=== PATIENT | female | born 1985 | race Caucasian/White ===

== ENCOUNTER → 2023-09-11 12:00 | Outpatient (CLI) | payer OTHER, SELFPAY ==
--- NOTE | ~2023-09-11 | MM_ITS ---
EXAMINATION: MM screening chrsitie BI w mary HISTORY: Screening TECHNIQUE: Craniocaudal and mediolateral oblique 3-D tomosynthesis images were obtained and synthetic 2-D images were generated. CAD analysis was submitted and interpreted. COMPARISON: No prior mammogram is available for comparison at this institution. BREAST PARENCHYMAL COMPOSITION: The breasts are heterogeneously dense, which may obscure small masses . FINDINGS: There is a focal mass in nearby asymmetries in the lower outer quadrant of the right breast . No mammographic evidence for malignancy in the left breast. IMPRESSION: 1. Right breast mass with adjacent asymmetries. 2. Additional mammographic views and possible breast ultrasound are recommended. BI-RADS Category 0: Incomplete: Needs additional imaging evaluation. Reviewed, dictated and finalized at location A. NING STILL OPERATOR IMPRESSION: 1. Right breast mass with adjacent asymmetries. 2. Additional mammographic views and possible breast ultrasound are recommended . BI-RADS Category 0: Incomplete: Needs additional imaging evaluation.
== END ==
PROVIDERS: PCP Obstetrics & Gynecology Gynecology; Visit Provider Obstetrics & Gynecology Gynecology
DX: Z12.31 Encounter for screening mammogram for malignant neoplasm of breast (principal); N63.13 Unspecified lump in the right breast, lower outer quadrant
CPT/HCPCS: 77063; 77067

== ENCOUNTER → 2023-10-09 08:54 | Outpatient (CLI) | payer OTHER, SELFPAY ==
--- NOTE | ~2023-10-09 | MMUS_ITS ---
EXAMINATION: MM diagnostic christie RT w mary, US breast RT limited HISTORY: Possible obscured mass in the lower outer quadrant of the right breast TECHNIQUE: Additional 3-D tomosynthesis images of the right breast were performed and synthetic 2-D i mages were generated. CAD analysis was submitted and interpreted. High resolution limited right breas t ultrasound was performed. COMPARISON: 09/11/2023 FINDINGS: MAMMOGRAPHIC FINDINGS: There is a 4 mm round, obscured, equal density mass in the middle third of the outer breast at the 9: 00 location, 4.5 cm from the nipple. No suspicious calcification or architectural distortion are iden tified. ULTRASOUND: There is a 6 mm cyst at the 10:00 location, 4 cm from the nipple likely corresponding to the mammogra phic finding in question. There is a 4 mm round, circumscribed, hypoechoic mass with no posterior fea tures or internal vascularity at the 10:00 location, 3 cm from the nipple. A 10 mm x 6 mm mass with s imilar sonographic features is present at the 10:00 location, 6 cm from the nipple. A 6 mm x 3 mm mas s with similar sonographic features is seen at the 9:00 location, 3 cm from the nipple. IMPRESSION: 1. Probably benign right breast masses. 2. Recommend 6 month follow-up right diagnostic mammogram and ultrasound. BI-RADS category 3, probably benign findings. Reviewed, dictated and finalized at location A. IST GUIDE IMPRESSION: 1. Probably benign right breast masses. 2. Recommend 6 month follow-up right diagnostic mammogram and ultrasound. BI-RADS category 3, probably benign findings.
== END ==
PROVIDERS: PCP Obstetrics & Gynecology Gynecology; Visit Provider Obstetrics & Gynecology Gynecology
DX: R92.8 Other abnormal and inconclusive findings on diagnostic imaging of breast (principal)
CPT/HCPCS: 76642; 77061; 77065; G0279

== ENCOUNTER 2024-04-29 08:21 | Outpatient (CLI) | payer OTHER, SELFPAY ==
--- NOTE | ~2024-04-29 | MMUS_ITS ---
EXAMINATION: MM diagnostic christie RT w mary, US breast RT limited HISTORY: Six-month follow-up of right breast lesions TECHNIQUE: 3-D tomosynthesis images of the right breast were performed and synthetic 2-D images were generated. CAD analysis was submitted and interpreted. High resolution Limited right breast ultrasoun d was performed. COMPARISON: 10/09/2023 and 09/11/2023 FINDINGS: MAMMOGRAPHIC FINDINGS: There are scattered fibroglandular densities. Parenchymal pattern of the right breast is essentially unchanged. No overtly suspicious mass lesion o r distortion seen. No suspicious interval change. No suspicious mesenteric or calcification. ULTRASOUND: Several 3 mm hypoechoic circumscribed round masses are again present at the right 9:00-10:00 position s, 3 cm from the nipple, with probably no significant interval change from prior exam. Additional pos sible 9 mm hypoechoic structure at the 10:00 position 6 cm from the nipple also appears unchanged, th ough in my opinion, this most likely represents an area of normal fibroglandular tissue. IMPRESSION: No mammographic or sonographic evidence of malignancy. Stable probable benign sonographic lesion see n at the 9:00-10:00 position of the right breast, as detailed above. Recommend follow-up ultrasound t o assure continued stability in 6 months, at the time of recommended bilateral mammography. BI-RADS category 3, probably benign findings. Reviewed, dictated and finalized at location . IMPRESSION: No mammographic or sonographic evidence of malignancy. Stable probable benign sonographic lesion seen at the 9:00-10:00 position of the right breast, as deta iled above. Recommend follow-up ultrasound to assure continued stability in 6 m onths, at the time of recommended bilateral mammography. BI-RADS category 3, probably benign findings.
== END 2024-04-29 08:22 ==
LOC: MICIMG 08:22
PROVIDERS: PCP Obstetrics & Gynecology Gynecology; Visit Provider Obstetrics & Gynecology Gynecology
DX: R92.8 Other abnormal and inconclusive findings on diagnostic imaging of breast (principal)
CPT/HCPCS: 76642; 77061; 77065; G0279

== ENCOUNTER 2024-11-17 08:21 | Outpatient (CLI) | payer OTHER, SELFPAY ==
--- NOTE | ~2024-11-17 | MMUS_ITS ---
EXAMINATION: MM diagnostic christie BI w mary, US breast RT limited HISTORY: Six-month follow-up exam TECHNIQUE: 3-D tomosynthesis images of the breasts were performed and synthetic 2-D images were gener ated. CAD analysis was submitted and interpreted. High resolution limited right breast ultrasound was performed. COMPARISON: 04/29/2024 BREAST PARENCHYMAL COMPOSITION:Not Dense. There are scattered areas of fibroglandular density. FINDINGS: MAMMOGRAPHIC FINDINGS: Parenchymal pattern of both breasts is unchanged. No suspicious mass lesion or distortion seen. No loya spicious microcalcification. ULTRASOUND: Stable 3 mm hypoechoic round structure at the 9:00 position right breast, 3 cm the nipple. Stable mas s versus focal fibroglandular tissue at the 10:00 position right breast, 6 cm from nipple, measuring 9 x 7 mm. IMPRESSION: Stable benign-appearing sonographic findings in the right breast, as detailed above. Stable mammogra phic examination. No findings which are suspicious for malignancy. BI-RADS Category 2: Benign finding(s). Reviewed, dictated and finalized at [facility]. ER GROWER IMPRESSION: Stable benign-appearing sonographic findings in the right breast, as detailed above. Stable mammographic examination. No findings which are suspicious for ma lignancy. BI-RADS Category 2: Benign finding(s).
== END 2024-11-17 08:22 | disposition home or self-care (01) ==
LOC: MICIMG 08:23
PROVIDERS: PCP Obstetrics & Gynecology Gynecology; Visit Provider Obstetrics & Gynecology Gynecology
DX: R92.8 Other abnormal and inconclusive findings on diagnostic imaging of breast (principal)
CPT/HCPCS: 76642; 77062; 77066; G0279

== ENCOUNTER 2024-12-03 12:04 | Emergency (ER) | payer OTHER, SELFPAY ==
[2024-12-03 12:10] VITALS: BP 143/70; PULSE 91; RESP 18; TEMP 38.2; O2SAT 100
--- NOTE | 2024-12-03 12:15 | ED.URI ---
HPI - URI/Sore Throat General Chief Complaint: Upper Respiratory Infection Stated Complaint: respiratory issues Time Seen by Provider: 12/03/24 12:15 Source: patient Mode of arrival: ambulatory Limitations: no limitations History of Present Illness HPI Narrative: 39y/o female presented for c/o cough x5 days. Started with fever yesterday. States cough is deep and nonproductive, and it started after cigarette smoke exposure. Endorses the chest is burning with cough. Took Cold medicine. Denies sob, wheezing, nasal congestion, sore throat, n/v/d. Related Data Allergies Allergy/AdvReac Type Severity Reaction Status Date / Time No Known Allergies Allergy Verified 12/03/24 12:16 Review of Systems Review of Systems: per HPI All systems reviewed & are unremarkable except as noted in HPI and below PMFSH Comments At time of signature, I have reviewed and agree with nursing past medical, surgical, social and family history unless otherwise noted. Please see nursing chart for further information. There is no relevant family history pertinent to the presenting complaint Exam Narrative: GENERAL: mildly ill-appearing, in no acute distress. EYES: EOMI. No redness or drainage. Conjunctivae normal. ENT: Mucous membranes pink and moist. No rhinorrhea. TMs normal bilaterally. Throat normal. Uvula midline. NECK: Normal AROM. Supple. CHEST: No respiratory distress. Lungs clear to all [place]. HEART: Regular rate and rhythm. No murmur appreciated. ABDOMEN: Soft, nontender, nondistended, normal active bowel sounds. EXTREMITIES: Normal range of motion. No edema. SKIN: Warm, dry, no rash. Capillary refill normal. Normal skin turgor. NEURO: Alert and oriented x3. Gait steady. PSYCH: Normal affect. Course Course Emergency Course: Patient is aware of diagnosis, understands and agrees to treatment plan. Anticipatory guidance given. Patient agrees to follow-up as directed and is aware of reasons to seek care at the emergency department. Portions of this record may have been created with voice recognition software Level of Care: Express Care Visit Vital Signs Vital signs: Vital Signs Temperature 100.8 F H 12/03/24 12:10 Pulse Rate 91 12/03/24 12:10 Respiratory Rate 18 12/03/24 12:10 Blood Pressure 143/70 H 12/03/24 12:10 Pulse Oximetry 100 12/03/24 12:10 Oxygen Delivery Room Air 12/03/24 12:10 Temperature 100.8 F H 12/03/24 12:10 Pulse Rate 91 12/03/24 12:10 Respiratory Rate 18 12/03/24 12:10 Blood Pressure 143/70 H 12/03/24 12:10 Pulse Oximetry 100 12/03/24 12:10 Oxygen Delivery Room Air 12/03/24 12:10 MDM - URI/Sore Throat MDM Narrative Medical decision making narrative: Discussed physical exam findings; neg flu and covid. Rx steroid. Advised supportive measures and signs/symptoms to go to the ER. Pt is appropriate for outpt treatment and f/u. Differential Diagnosis Differential diagnosis: Likely upper respiratory infection, sinusitis, viral infection, bronchitis, influenza and pharyngitis Discharge Plan Discharge Clinical Impression: Viral infection Patient Disposition: Home, Self-Care Condition: Stable Instructions: Antibiotic Form, Upper Respiratory Infection (ED) Additional Instructions: Your rapid Flu and covid tests were negative today. It may be too early to detect the virus, therefore we recommend retesting at home in 1-2 days Continue to follow general precautions: frequent handwashing, wear a mask, isolate/social distance, and avoid crowds if you have a fever. You must be fever free for 24 hours without the use of fever reducing medication (Tylenol/ibuprofen) before returning to work/school/crowds. Acute bronchitis can be contagious because it is usually caused by infection with a virus or bacteria. It is usually for a few days but you can be contagious for up to one week. Avoid crowds until you do not have a fever and symptoms are improved Take steroid as directed Recommendations: Flonase spray and Zyrtec (or Claritin/Rosibel) over the counter Cough syrup may cause drowsiness; avoid driving or take it at night time. Tylenol 1000mg every 8 hours as needed for pain Symptomatic treatment includes: rest, fluids, and increase humidity of the air at home. Follow up with your primary care provider as needed in 1 week Go to the ER for worsening symptoms or concerns Patient Language: Bulgarian Prescriptions: New prednisone 20 mg tablet 40 mg PO DAILY 5 Days Qty: 10 0RF Follow-up/Referrals: PHYSICIAN,OCCUPATIONAL THERAPY SUPERVISOR [Primary Care Provider] - Stand Alone Forms: Work/School Release IP Time of Disposition: 12:41
[2024-12-03 12:43] LABS: EDCOVIDSCREEN Negative (Negative); EDINFLUASCREEN Negative (Negative); EDINFLUBSCREEN Negative (Negative)
== END 2024-12-03 12:44 | disposition home or self-care (01) ==
PROVIDERS: Emergency Provider Nurse Practitioner Family
DX: B34.9 Viral infection, unspecified (principal); Z20.822 Contact with and (suspected) exposure to COVID-19
CPT/HCPCS: 87426; 87804; 99203; G0463